=== PATIENT | male | born 1960 | race Asian ===

== ENCOUNTER 2020-06-25 12:08 | Observation (INO) | payer OTHER ==
[2020-06-25 12:23] VITALS: BP 142/76; PULSE 73; TEMP 98.1; BMI 26.2
[2020-06-25] MEDS ORDERED: ACETAMINOPHEN 325 MG TABLET (FP) PO ONE (13:16)
[2020-06-25] MEDS ORDERED: ACETAMINOPHEN 325 MG TABLET (FP) ONE (13:23)
[2020-06-25 13:46] LABS: EOS % 4.4 % (0-4.5); HEMOGLOBIN 13.8 GM/dL (11.7-16.9); LYMPH % 48.6 % (8-40); MCH 27.3 pg (25.7-33.7); MCHC 34.4 g/dl (32.0-35.9); MEAN CELL VOLUME 79.6 fl (80-96); MEAN PLT VOLUME 9.2 fl (7.5-11.1); MONO % 6.9 % (3.8-10.2); NEUT % 38.1 % (42.8-82.8); PLATELET COUNT 223 K/MM3 (134-434); RBC 5.03 M/mm3 (4.00-5.60); RDW 13.8 % (11.9-15.9); WHITE BLOOD COUNT 6.8 K/mm3 (4.0-10.0)
[2020-06-25 14:02] LABS: CHLORIDE 109 mmol/L (98-107); SODIUM 140 mmol/L (136-145)
[2020-06-25 14:05] LABS: ALBUMIN 4.4 g/dl (3.4-5.0); ANION GAP 8 MMOL/L (8-16); BLOOD UREA NITROGEN 17.8 mg/dL (7-18); CALCIUM 8.8 mg/dL (8.5-10.1); CO2 23 mmol/L (21-32); GLUCOSE,RANDOM 73 mg/dL (74-106)
[2020-06-25 14:08] LABS: CREATININE 0.7 mg/dL (0.55-1.3); SGOT/AST 31 U/L (15-37); SGPT/ALT 37 U/L (13-61)
[2020-06-25 14:09] LABS: BILIRUBIN,TOTAL 0.4 mg/dL (0.2-1); TOT PROT 8.1 g/dl (6.4-8.2)
[2020-06-25 14:10] LABS: ALK PHOS 66 U/L (45-117)
== END 2020-06-26 00:07 | disposition home or self-care (01) ==
LOC: JER 12:08 → JERBED 17:06
PROVIDERS: ADMIT Hospitalist; ATTEND Internal Medicine
DX: E11.40 Type 2 diabetes mellitus with diabetic neuropathy, unspecified (principal); M79.622 Pain in left upper arm; E78.5 Hyperlipidemia, unspecified; I10 Essential (primary) hypertension
CPT/HCPCS: 36415; 71045-TC-FY; 71275-TC; 80053; 84484; 85025; 93005; 93010; 99285-25; C9803; G0378; Q9967; U0003; U0005